=== PATIENT | female | born 1970 | race Hispanic/Latino ===

== ENCOUNTER 2017-01-14 08:04 | Emergency (ER) | payer OTHER ==
[2017-01-14] MEDS ORDERED: Mag-Al Plus 1200 MG/1200 MG/120 MG/30 ML UDCUP ONE (08:18)
[2017-01-14] MEDS ORDERED: Lidocaine Viscous Sol 2% 15 ml UD Cup ONE (08:18)
[2017-01-14] MEDS ORDERED: Sodium Chloride 0.9% 500 ML ONE (08:18)
[2017-01-14 09:15] LABS: #Basophils 0.1 thou/uL (0.0-0.2); #Eosinphils 0.1 thou/uL (0.0-0.7); #Monocytes 0.6 thou/uL (0.11-0.59); #Neutrophils 5.3 thou/uL (1.40-6.50); %Basophils 1.4 % (0.0-1.0); %Eosinophils 1.8 % (0.0-10.0); %Lymphocytes 24.6 % (21.0-51.0); %Monocytes 7.4 % (0.0-10.0); %Neutrophils 64.7 % (42.0-75.0); BHCG - Serum NEGATIVE (NEGATIVE); Hemoglobin 12.2 g/dL (12.0-16.0); Mean Corpuscular HGB CONC 34.4 g/dL (32.0-36.0); Mean Corpuscular Hemoglobin 29.1 pg (27.0-31.0); Mean Corpuscular Volume 84.6 fl (81.0-99.0); Mean Platelet Volume 5.6 fL (7.4-10.4); Platelet Count 309 thou/uL (130-400); Pregs Control Bar Appear? YES (CONTROL BAR); RBC Distribution Width 13.5 % (11.5-14.5); Red Blood Cell (RBC) Count 4.19 mill/uL (4.20-5.40)
[2017-01-14 09:16] LABS: Chloride 101 mmol/L (98-107); Potassium 4.1 mmol/L (3.5-5.1); Sodium 131 mmol/L (136-145); White Blood Cell (WBC) Count 8.1 thou/uL (4.8-10.8)
[2017-01-14 09:32] LABS: Albumin 3.7 g/dL (3.5-5.0); Alkaline Phosphatase 85 U/L (40-150); Anion Gap 18 mmol/L (10-20); BUN (Urea Nitrogen) 17 mg/dL (7.0-18.7); Bilirubin, Total 0.4 mg/dL (0.2-1.2); Calc. Creatinine Clearance 0 mL/min (70-130); Calcium 9.5 mg/dL (7.8-10.44); Estimated GFR-MDRD 73; Globulin 2.7 g/dL (2.4-3.5); Glucose 248 mg/dL (70-105); Protein, Total 6.4 g/dL (6.0-8.3)
[2017-01-14 09:34] LABS: ALT (SGPT) 16 U/L (0-55); AST (SGOT) 25 U/L (5-34)
[2017-01-14 09:35] LABS: Carbon Dioxide 16 mmol/L (22-29)
[2017-01-14] MEDS ORDERED: Sodium Chloride 0.9% 1,000 ML ONE (09:53)
[2017-01-14 10:13] LABS: Lipase 8100 U/L (8-78)
== END 2017-01-14 12:41 | disposition short-term general hospital (02) ==
LOC: NAV ERS 08:04
DX: K85.90 Acute pancreatitis without necrosis or infection, unspecified (principal); E78.5 Hyperlipidemia, unspecified; F32.9 Major depressive disorder, single episode, unspecified; F17.220 Nicotine dependence, chewing tobacco, uncomplicated
CPT/HCPCS: 80053; 83605; 83690; 84703; 85025; 93005; 96361; 96374; 96376; J1170; J7050

== ENCOUNTER 2019-12-07 03:59 | Emergency (ER) | payer OTHER, SELFPAY | END 2019-12-07 07:05 | disposition home or self-care (01) | LOC: NAV ERS 03:59 | DX: T78.1XXA Other adverse food reactions, not elsewhere classified, initial encounter (principal); L50.0 Allergic urticaria; E11.9 Type 2 diabetes mellitus without complications; E03.9 Hypothyroidism, unspecified; E78.2 Mixed hyperlipidemia; J45.909 Unspecified asthma, uncomplicated; F32.9 Major depressive disorder, single episode, unspecified; Z87.891 Personal history of nicotine dependence; Z79.899 Other long term (current) drug therapy; Z79.51 Long term (current) use of inhaled steroids | CPT/HCPCS: 99283 ==

== ENCOUNTER 2020-06-20 14:23 | Emergency (ER) | payer OTHER, SELFPAY ==
[2020-06-20] MEDS ORDERED: HYDROmorphone 0.5 MG/0.5 ML SYRINGE ONE ×2 (14:59→15:53)
[2020-06-20] MEDS ORDERED: Sodium Chloride 0.9% 1,000 ML ONE (14:59)
[2020-06-20 15:30] LABS: ALT (SGPT) 16 U/L (8-55); AST (SGOT) 17 U/L (5-34); Albumin 3.9 g/dL (3.5-5.0); Alkaline Phosphatase 89 U/L (40-110); BUN (Urea Nitrogen) 15 mg/dL (7.0-18.7); Bilirubin, Total 0.4 mg/dL (0.2-1.2); Calc. Creatinine Clearance 0 mL/min (70-130); Calcium 10.1 mg/dL (7.8-10.44); Chloride 105 mmol/L (98-107); Estimated GFR-MDRD 77; Globulin 4.2 g/dL (2.4-3.5); Glucose 189 mg/dL (70-105); Potassium 3.5 mmol/L (3.5-5.1); Protein, Total 8.1 g/dL (6.0-8.3); Sodium 136 mmol/L (136-145)
[2020-06-20 15:32] LABS: #Basophils 0.1 thou/uL (0.0-0.2); #Eosinphils 0.2 thou/uL (0.0-0.7); #Lymphocytes 2.3 thou/uL (1.20-3.40); #Monocytes 0.7 thou/uL (0.11-0.59); #Neutrophils 6.7 thou/uL (1.40-6.50); %Basophils 1.2 % (0.0-1.0); %Eosinophils 2.3 % (0.0-10.0); %Monocytes 6.5 % (0.0-10.0); %Neutrophils 67.1 % (42.0-75.0); Hemoglobin 12.5 g/dL (12.0-16.0); Mean Corpuscular HGB CONC 33.1 g/dL (32.0-36.0); Mean Corpuscular Hemoglobin 29.1 pg (27.0-31.0); Mean Corpuscular Volume 87.7 fL (78.0-98.0); Mean Platelet Volume 5.9 fL (7.4-10.4); Platelet Count 251 thou/uL (130-400); RBC Distribution Width 12.9 % (11.5-14.5); Red Blood Cell (RBC) Count 4.31 mill/uL (4.20-5.40)
[2020-06-20] MEDS ORDERED: Ondansetron PF 4 MG/2 ML Vial ONE (15:51)
[2020-06-20 16:28] LABS: Carbon Dioxide 17 mmol/L (22-29)
[2020-06-20 16:29] LABS: Anion Gap 18 mmol/L (10-20)
[2020-06-20 16:36] LABS: Lipase 3136 U/L (8-78)
== END 2020-06-20 18:13 | disposition short-term general hospital (02) ==
LOC: NAV ERS 14:23
DX: K85.90 Acute pancreatitis without necrosis or infection, unspecified (principal); R11.2 Nausea with vomiting, unspecified; E03.9 Hypothyroidism, unspecified; E11.9 Type 2 diabetes mellitus without complications; E78.2 Mixed hyperlipidemia; J45.909 Unspecified asthma, uncomplicated; F32.9 Major depressive disorder, single episode, unspecified; Z87.891 Personal history of nicotine dependence; Z79.899 Other long term (current) drug therapy
CPT/HCPCS: 36415; 80053; 83690; 85025; 96361; 96374; 96375; 96376; J1170; J2405; J7050

== ENCOUNTER 2021-05-15 22:26 | Emergency (ER) | payer OTHER, SELFPAY ==
[2021-05-15] MEDS ORDERED: Ondansetron PF 4 MG/2 ML Vial ONE (22:59)
[2021-05-15] MEDS ORDERED: Sodium Chloride 0.9% 1,000 ML ONE ×2 (22:59→23:50)
[2021-05-15 23:20] LABS: #Basophils 0.1 thou/uL (0.0-0.2); #Eosinphils 0.2 thou/uL (0.0-0.7); #Monocytes 0.7 thou/uL (0.11-0.59); #Neutrophils 6.8 thou/uL (1.40-6.50); %Eosinophils 1.6 % (0.0-10.0); %Lymphocytes 28.2 % (21.0-51.0); %Monocytes 6.7 % (0.0-10.0); %Neutrophils 62.6 % (42.0-75.0); Mean Corpuscular HGB CONC 33.9 g/dL (32.0-36.0); Mean Corpuscular Hemoglobin 29.8 pg (27.0-31.0); Mean Platelet Volume 6.4 fL (7.4-10.4); Platelet Count 274 thou/uL (130-400); RBC Distribution Width 13.4 % (11.5-14.5); Red Blood Cell (RBC) Count 4.36 mill/uL (4.20-5.40); White Blood Cell (WBC) Count 10.8 thou/uL (4.8-10.8)
[2021-05-15 23:22] LABS: Bilirubin Negative (Negative); Blood, Urine Small (Negative); Clarity Clear (Clear); Glucose, Urine (Dipstick) Negative (Negative); Ketone, Urine Negative (Negative); Leukocyte Negative (Negative); Nitrite Negative (Negative); Protein, Urine (Dipstick) 100 mg/dL (Neg-Trace); Urobilinogen 0.2 mg/dL (Less than 2)
[2021-05-15 23:29] LABS: Specific Gravity, Urine 1.027 (1.002-1.036)
[2021-05-15 23:30] LABS: Bacteria/HPF None Seen HPF (None Seen); Calcium Oxalate Crystals 3+ HPF (None Seen); WBC/HPF None Seen HPF (0-3)
[2021-05-15 23:38] LABS: ALT (SGPT) 13 U/L (8-55); AST (SGOT) 13 U/L (5-34); Albumin 3.8 g/dL (3.5-5.0); Alkaline Phosphatase 83 U/L (40-110); Anion Gap 23 mmol/L (10-20); BUN (Urea Nitrogen) 13 mg/dL (7.0-18.7); Bilirubin, Total 0.3 mg/dL (0.2-1.2); Calc. Creatinine Clearance 0 mL/min (70-130); Calcium 10.1 mg/dL (7.8-10.44); Carbon Dioxide 14 mmol/L (22-29); Chloride 103 mmol/L (98-107); Globulin 4.1 g/dL (2.4-3.5); Glucose 165 mg/dL (70-105); Lipase 40 U/L (8-78); Potassium 3.7 mmol/L (3.5-5.1); Protein, Total 7.9 g/dL (6.0-8.3); Sodium 136 mmol/L (136-145)
[2021-05-15] MEDS ORDERED: Sucralfate 1 GM TAB ONE (23:50)
[2021-05-15] MEDS ORDERED: Pantoprazole 40 MG VIAL ONE (23:50)
== END 2021-05-16 00:50 | disposition home or self-care (01) ==
LOC: NAV ERS 22:26
DX: K29.00 Acute gastritis without bleeding (principal); E03.9 Hypothyroidism, unspecified; E78.5 Hyperlipidemia, unspecified; J45.909 Unspecified asthma, uncomplicated; Z87.891 Personal history of nicotine dependence; Z79.899 Other long term (current) drug therapy
CPT/HCPCS: 36415; 80053; 81003; 81015; 83690; 85025; 96374; 96375; C9113; J2405; J7050

== ENCOUNTER 2021-06-16 06:16 | Emergency (ER) | payer SELFPAY ==
[2021-06-16] MEDS ORDERED: Ondansetron ODT 4 MG TAB ONE (06:37)
[2021-06-16] MEDS ORDERED: Fentanyl 100 MCG/2 ML VIAL ONE ×2 (06:59→08:23)
[2021-06-16] MEDS ORDERED: Sodium Chloride 0.9% 1,000 ML ONE ×2 (06:59→08:00)
[2021-06-16 07:03] LABS: Albumin 3.9 g/dL (3.5-5.0); Calcium 10.4 mg/dL (7.8-10.44); Chloride 91 mmol/L (98-107)
[2021-06-16 07:07] LABS: #Basophils 0.1 thou/uL (0.0-0.2); #Eosinphils 0.1 thou/uL (0.0-0.7); #Lymphocytes 2.2 thou/uL (1.20-3.40); #Monocytes 0.6 thou/uL (0.11-0.59); %Basophils 1.2 % (0.0-1.0); %Eosinophils 1.3 % (0.0-10.0); %Lymphocytes 21.6 % (21.0-51.0); %Monocytes 6.3 % (0.0-10.0); %Neutrophils 69.6 % (42.0-75.0); Hemoglobin 13.4 g/dL (12.0-16.0); Mean Corpuscular Hemoglobin 37.5 pg (27.0-31.0); Platelet Count 363 thou/uL (130-400); RBC Distribution Width 15.3 % (11.5-14.5); Red Blood Cell (RBC) Count 3.58 mill/uL (4.20-5.40)
[2021-06-16 07:15] LABS: Platelet Morphology Comment Appears Adequate
[2021-06-16 07:18] LABS: Mean Corpuscular HGB CONC 41.2 g/dL (32.0-36.0)
[2021-06-16 07:21] LABS: Anion Gap 16 mmol/L (10-20)
[2021-06-16 07:33] LABS: ALT (SGPT) 15 U/L (8-55); AST (SGOT) 29 U/L (5-34); Alkaline Phosphatase 69 U/L (40-110); BUN (Urea Nitrogen) 9 mg/dL (7.0-18.7); Bilirubin, Total 0.2 mg/dL (0.2-1.2); Calc. Creatinine Clearance 0 mL/min (70-130); Carbon Dioxide 16 mmol/L (22-29); Glucose 187 mg/dL (70-105); Potassium 4.8 mmol/L (3.5-5.1); Protein, Total 5.2 g/dL (6.0-8.3); Sodium 117 mmol/L (136-145)
[2021-06-16 09:12] LABS: Pregnancy Test - Urine (BHCG) Negative (Negative); Pregu Control Background? CLEAR/WHITE (CLR/WHITE); Pregu Control Bar Appear? YES (CONTROL BAR); Specific Gravity 1.024 (1.002-1.036)
[2021-06-16 10:33] LABS: Cardiac Risk 67.4 (Less than 4.5); Cholesterol 1078 mg/dl (< 200 Desired); HDL Cholesterol 16 mg/dL (>60 Neg Risk)
[2021-06-16 10:41] LABS: Calcium 11.8 mg/dL (7.8-10.44); Chloride 93 mmol/L (98-107); Potassium 3.8 mmol/L (3.5-5.1); Sodium 118 mmol/L (136-145)
[2021-06-16 11:05] LABS: BUN (Urea Nitrogen) 9 mg/dL (7.0-18.7); Calc. Creatinine Clearance 0 mL/min (70-130); Carbon Dioxide 17 mmol/L (22-29); Glucose 176 mg/dL (70-105)
[2021-06-16 20:36] LABS: Lipase 2300 U/L (8-78)
== END 2021-06-16 09:30 | disposition short-term general hospital (02) ==
LOC: NAV ERS 06:16
DX: K85.80 Other acute pancreatitis without necrosis or infection (principal); E86.0 Dehydration; E87.1 Hypo-osmolality and hyponatremia; E87.2 Acidosis; E03.9 Hypothyroidism, unspecified; E78.5 Hyperlipidemia, unspecified; Z87.891 Personal history of nicotine dependence; Z79.899 Other long term (current) drug therapy
CPT/HCPCS: 36415; 80053; 80061; 81025; 83605; 83690; 84484; 85025; 93005; 94760; 96374; 96376; J3010; J7050; Q0162

== ENCOUNTER 2022-09-29 09:02 | Emergency (ER) | payer OTHER, SELFPAY ==
[2022-09-29 09:52] LABS: Bilirubin Negative (Negative); Blood, Urine Trace (Negative); Clarity Clear (Clear); Glucose, Urine (Dipstick) Negative (Negative); Ketone, Urine Negative (Negative); Leukocyte Negative (Negative); Nitrite Negative (Negative); Protein, Urine (Dipstick) 30 mg/dL (Neg-Trace); Specific Gravity, Urine 1.025 (1.005-1.030); Urobilinogen 0.2 mg/dL (Less than 2)
[2022-09-29 10:05] LABS: Albumin 3.8 g/dL (3.5-5.0); Alkaline Phosphatase 79 U/L (40-110); Anion Gap 24 mmol/L (10-20); BUN (Urea Nitrogen) 7 mg/dL (7.0-18.7); Bilirubin, Total 0.4 mg/dL (0.2-1.2); Calc. Creatinine Clearance 0 mL/min (70-130); Calcium 9.8 mg/dL (7.8-10.44); Carbon Dioxide 11 mmol/L (22-29); Chloride 103 mmol/L (98-107); Estimated GFR 111; Globulin 6.2 g/dL (2.4-3.5); Glucose 182 mg/dL (70-105); Lipase 51 U/L (8-78); Potassium 4.5 mmol/L (3.5-5.1); Sodium 133 mmol/L (136-145)
[2022-09-29 10:06] LABS: Bacteria/HPF None Seen HPF (None Seen); RBC/HPF 0-3 HPF (0-3); Squamous Epithelial None Seen HPF (0-3); WBC/HPF None Seen HPF (0-3)
[2022-09-29 10:07] LABS: Hemoglobin 15.2 g/dL (12.0-16.0); Mean Corpuscular Hemoglobin 33.7 pg (27.0-31.0); Mean Corpuscular Volume 87.9 fl (78.0-98.0); Red Blood Cell (RBC) Count 4.52 mill/uL (4.20-5.40)
[2022-09-29 10:08] LABS: #Eosinphils 0.2 thou/uL (0.0-0.7); #Lymphocytes 2.2 thou/uL (1.20-3.40); #Monocytes 0.4 thou/uL (0.11-0.59); #Neutrophils 5.1 thou/uL (1.40-6.50); %Basophils 1.3 % (0.0-1.0); %Eosinophils 2.4 % (0.0-10.0); %Lymphocytes 27.4 % (21.0-51.0); %Monocytes 5.5 % (0.0-10.0); %Neutrophils 63.5 % (42.0-75.0); Manual Diff?? NO; Mean Corpuscular HGB CONC 38.3 g/dL (32.0-36.0); Mean Platelet Volume 6.1 fL (7.4-10.4); Platelet Count 342 10x3/uL (130-400); RBC Distribution Width 12.8 % (11.5-14.5)
[2022-09-29 10:09] LABS: #Basophils 0.1 thou/uL (0.0-0.2)
[2022-09-29 10:26] LABS: Microcytosis SLIGHT = 6-15 cells (100X) (0-5/hpf); Platelet Morphology Comment Appears Adequate
[2022-09-29] MEDS ORDERED: Sucralfate 1 GM TAB ONE (10:26)
[2022-09-29] MEDS ORDERED: Mag-Al Plus 1200 MG/1200 MG/120 MG/30 ML UDCUP ONE (10:26)
[2022-09-29] MEDS ORDERED: Ondansetron ODT 4 MG TAB ONE (10:26)
[2022-09-29] MEDS ORDERED: Lidocaine Viscous Sol 2% 15 ml UD Cup ONE (10:26)
[2022-09-29 10:31] LABS: ALT (SGPT) 15 U/L (8-55); AST (SGOT) 21 U/L (5-34)
[2022-09-29 17:05] LABS: Cholesterol 462 mg/dl (< 200 Desired); HDL Cholesterol 21 mg/dL (>60 Neg Risk); Triglycerides 3530 mg/dL (Less than 150)
== END 2022-09-29 11:12 | disposition home or self-care (01) ==
LOC: NAV ERS 09:02
DX: K29.00 Acute gastritis without bleeding (principal); E03.9 Hypothyroidism, unspecified; E78.2 Mixed hyperlipidemia; Z87.891 Personal history of nicotine dependence
CPT/HCPCS: 80053; 80061; 81003; 81015; 83690; 85025; 99283; Q0162